=== PATIENT | male | born 1980 | race Hispanic/Latino ===

== ENCOUNTER 2018-09-01 12:24 | Outpatient (CLI) | payer SELFPAY ==
--- NOTE | 2018-09-01 14:58 | RAD ---
CHEST 1 VIEW: Date: 09/01/18 INDICATION: Rule out TB. COMPARISON: Prior exam dated 05/30/18. FINDINGS: The spiculated parenchymal opacify of right upper lobe persists. There is a 9 mm pulmonary nodule in the left upper lobe. Heart size is normal. No acute osseous abnormality is evident. There is healed d eformity involving the right clavicle. IMPRESSION: 1. Persistent parenchymal opacity right upper lobe. CT of thorax with IV contrast recommended. 2. Persistent 9 mm pulmonary nodule left upper lobe. Further characterization by CT recommended. 3. Healed deformity of right clavicle. POS: CET
== END 2018-09-01 12:25 | disposition home or self-care (01) ==
LOC: BICRAD 12:24
PROVIDERS: ATTEND Internal Medicine Pulmonary Disease
DX: Z03.89 Encounter for observation for other suspected diseases and conditions ruled out (principal); R91.8 Other nonspecific abnormal finding of lung field
CPT/HCPCS: 71045

== ENCOUNTER 2019-06-03 20:41 | Emergency (ER) | payer SELFPAY ==
[2019-06-03 21:00] LABS: #Basophils 0.1 thou/uL (0.0-0.2); #Lymphocytes 3.4 thou/uL (1.20-3.40); #Monocytes 0.4 thou/uL (0.11-0.59); #Neutrophils 3.9 thou/uL (1.40-6.50); %Basophils 1.3 % (0.0-1.0); %Eosinophils 0.4 % (0.0-10.0); %Lymphocytes 43.2 % (21.0-51.0); %Neutrophils 50.2 % (42.0-75.0); Hemoglobin 17.8 g/dL (14.0-18.0); Mean Corpuscular HGB CONC 35.2 g/dL (32.0-36.0); Mean Corpuscular Hemoglobin 31.2 pg (27.0-31.0); Mean Corpuscular Volume 88.6 fL (78.0-98.0); Mean Platelet Volume 9.1 fL (7.4-10.4); Platelet Count 312 thou/uL (130-400); RBC Distribution Width 11.5 % (11.5-14.5); Red Blood Cell (RBC) Count 5.69 mill/uL (4.70-6.10); White Blood Cell (WBC) Count 7.8 thou/uL (4.8-10.8)
[2019-06-03] MEDS ORDERED: Lorazepam 2 MG/ML VIAL ONE (21:03)
--- NOTE | 2019-06-03 21:21 | CT ---
CT HEAD WITHOUT CONTRAST: 06/03/19 HISTORY: Headache, hypertension. Ventricles have normal size and position. No evidence of intracranial mass or hemorrhage. No evidence of infarct. The sinuses and mastoids are clear. IMPRESSION: Unremarkable head CT. POS: [facility]
[2019-06-03 21:32] LABS: ALT (SGPT) 47 U/L (8-55); AST (SGOT) 42 U/L (5-34); Albumin 4.6 g/dL (3.5-5.0); Alkaline Phosphatase 97 U/L (40-110); Anion Gap 14 mmol/L (10-20); BUN (Urea Nitrogen) 7 mg/dL (8.9-20.6); Bilirubin, Total 0.5 mg/dL (0.2-1.2); Calc. Creatinine Clearance 0 mL/min (70-130); Calcium 9.5 mg/dL (7.8-10.44); Carbon Dioxide 25 mmol/L (22-29); Chloride 102 mmol/L (98-107); Estimated GFR-MDRD 85; Globulin 3.9 g/dL (2.4-3.5); Glucose 291 mg/dL (70-105); Potassium 3.8 mmol/L (3.5-5.1); Protein, Total 8.5 g/dL (6.0-8.3); Sodium 137 mmol/L (136-145)
[2019-06-03 22:09] LABS: CK (CPK) 105 U/L (30-200)
== END 2019-06-03 21:56 | disposition home or self-care (01) ==
LOC: ERS 20:41
DX: I15.9 Secondary hypertension, unspecified (principal); F10.129 Alcohol abuse with intoxication, unspecified; J45.909 Unspecified asthma, uncomplicated
CPT/HCPCS: 70450; 80053; 80307; 82550; 84484; 85025; 93005; 96361; 96374; J2060